=== PATIENT | female | born 1980 | race Caucasian/White ===

== ENCOUNTER 2017-03-09 10:17 | Emergency (ER) | payer SELFPAY ==
[~2017-03-09] VITALS: Ht 181.6 cm; Wt 58.8 kg
[2017-03-09 10:19] VITALS: BP 135/80; PULSE 75; RESP 16; TEMP 99.4; O2SAT 99
[2017-03-09] MEDS ORDERED: KETOROLAC TROMETHAMINE 60 MG/2 ML (IM) VIAL IM ONE (10:45)
[2017-03-09] MEDS ORDERED: CLINDAMYCIN 150 MG CAP PO ONE (10:45)
--- NOTE | 2017-03-09 10:45 | PD ---
HPI Chief Complaint: Oral / Dental Pain or Problem Time Seen by Provider: 10:37 Travel History International Travel<30 days: No Contact w/Intl Traveler<30days: No Traveled to known affect area: No History of Present Illness HPI 37-year-old female here with left facial swelling and left upper dental pain. He reports symptom onset today. She has previous history of dental abscesses. She denies fever or chills. She denies difficulty swallowing or change in voice. Symptom severity is moderate. No alleviating factors. PFSH Past Medical History Medical History: Denies Significant Hx ?: Not LMP: 03/02/17 Social History Tobacco Use: No Allergies-Medications (Allergen,Severity, Reaction): Coded Allergies: No Known Allergies (Unverified , 03/09/17) Review of Systems Except as stated in HPI: all other systems reviewed are Neg Physical Exam Narrative GENERAL: Well-nourished, well-developed patient. SKIN: Focused skin assessment warm/dry. HEAD: Normocephalic. Left sided facial swelling EYES: No scleral icterus. No injection or drainage. MOUTH: Mucous membranes moist, no lesions, tongue appear normal. Gum erythema and tenderness around the site of tooth #14 NECK: Supple, trachea midline. No JVD or lymphadenopathy. CARDIOVASCULAR: Regular rate and rhythm without murmurs, gallops, or rubs. RESPIRATORY: Breath sounds equal bilaterally. No accessory muscle use. Data Data Last Documented VS Vital Signs Date Time Temp Pulse Resp B/P (MAP) Pulse Ox O2 Delivery O2 Flow Rate FiO2 03/09/17 10:19 99.4 75 16 135/80 (98) 99 Orders Orders Clindamycin (Cleocin) (03/09/17 10:45) Ketorolac Inj (Toradol Inj) (03/09/17 10:45) [facility] Medical Decision Making Medical Screen Exam Complete: Yes Emergency Medical Condition: Yes Differential Diagnosis Dental abscess, dental infection, periodontal disease Narrative Course 37-year-old female here with left facial swelling and left upper dental pain. He reports symptom onset today. She has previous history of dental abscesses. She denies fever or chills. She denies difficulty swallowing or change in voice. On exam she has moderate left-sided facial swelling. She is nontoxic appearing. She has gum tenderness and erythema around the site of tooth #14. Airway is patent. The oral swelling. She'll be treated with antibiotics instructed to follow-up with her dentist. Diagnosis Primary Impression: Dental abscess Referrals: Dentist Additional Instructions: The antibiotics as prescribed. Take [id number] Motrin 800 mg every 6 hours as needed for pain. Follow-up with dentist. Scripts Clindamycin (Clindamycin) 300 Mg Cap 300 MG PO Q6H for Infection for 10 Days, #40 CAP 0 Refills Prov: Ivy Rodríguez 03/09/17 Disposition: 01 DISCHARGE HOME Condition: Stable Ivy Rodríguez Mar 09, 2017 10:45
[2017-03-09] MEDS ORDERED: CLIN300C5 PO (10:49)
== END 2017-03-09 10:58 | disposition home or self-care (01) ==
LOC: PHEFT 10:17
DX: K04.7 Periapical abscess without sinus (principal)
CPT/HCPCS: 96372; 99284; J1885